=== PATIENT | male | born 1975 | race Two or more races ===

== ENCOUNTER 2019-09-14 19:57 | Inpatient (IN) | payer MEDICAID ==
[~2019-09-14] VITALS: Ht 182.9 cm; Wt 83.6 kg
--- NOTE | 2019-09-14 20:12 | NUR ---
ED Nurse Note: patient walked in to ED c/o high blood sugar, patient states he needs insulin and is visiting from [place] and has been unable to take his medications since he did not take it with him. Patient states he is also unable to check his blood sugar. Patient aao x 4 and ambulatory. No acute distress noted during assessment. Urine collected.
[2019-09-14 20:13] VITALS: BP_SYST 139; BP_SYST 148; BP_DIAS 78; BP_DIAS 89
[2019-09-14 20:24] LABS: APPEARANCE,URINE CLEAR; BILIRUBIN, URINE NEGATIVE (NEGATIVE); COLOR,URINE PALE YELLOW; GLUCOSE, URINE (UA) 4+ (NEGATIVE); KETONES,URINE 4+ (NEGATIVE); LEUKOCYTE ESTERASE ,URINE NEGATIVE (NEGATIVE); NITRITE,URINE NEGATIVE (NEGATIVE); PH,URINE 5 (4.5-8.0); PROTEIN,URINE 2+ (NEGATIVE); UROBILINOGEN,URINE NORMAL MG/DL (0.0-1.0)
[2019-09-14 20:25] LABS: BASOPHILS % (AUTO) 0.7 % (0.0-2.0); EOSINOPHILS % (AUTO) 0.1 % (0.0-3.0); HEMATOCRIT 53.2 % (42.0-52.0); LYMPHOCYTES % (AUTO) 10.5 % (20.0-45.0); MEAN CORPUSCULAR VOLUME 92 FL (80-99); MONOCYTES % (AUTO) 3.8 % (1.0-10.0); NEUTROPHILS % (AUTO) 84.9 % (45.0-75.0); PLATELET COUNT 243 K/UL (150-450); RED BLOOD COUNT 5.78 M/UL (4.70-6.10); RED CELL DISTRIBUTION WIDTH 11.7 % (11.6-14.8); WHITE BLOOD COUNT 11.3 K/UL (4.8-10.8)
[2019-09-14 20:39] LABS: ALANINE AMINOTRANSFERASE 78 U/L (12-78); ALBUMIN 5.1 G/DL (3.4-5.0); ALBUMIN/GLOBULIN RATIO 1.1 (1.0-2.7); ALKALINE PHOSPHATASE 126 U/L (46-116); ANION GAP 21 mmol/L (5-15); ASPARTATE AMINO TRANSFERASE 28 U/L (15-37); BILIRUBIN,TOTAL 0.7 MG/DL (0.2-1.0); BLOOD UREA NITROGEN 20 mg/dL (7-18); CALCIUM 9.7 MG/DL (8.5-10.1); CARBON DIOXIDE 15 MMOL/L (21-32); CHLORIDE 92 MMOL/L (98-107); CREATININE 1.5 MG/DL (0.55-1.30); POTASSIUM 5.2 MMOL/L (3.5-5.1); SODIUM 128 MMOL/L (136-145)
[2019-09-14 20:47] LABS: HEMOGLOBIN 18.3 G/DL (14.2-18.0)
--- NOTE | 2019-09-14 21:04 | NUR ---
ED Nurse Note: RT at bedside
[2019-09-14] MEDS ORDERED: Insulin Reg 100 units Premix 100 ML IV SCH ×2 (21:15→21:30)
--- NOTE | 2019-09-14 21:15 | Emergency Room Report ---
History of Present Illness General Chief Complaint: Vomiting Present Illness HPI Disclaimer: Please note that this report is being documented using [employer] technology. This can lead to erroneous entry secondary to incorrect interpretation by the dictating instrument. HPI: 44-year-old male history of diabetes presents for high blood sugar. Patient apparently was recently incarcerated and released. Came down to our area from [place] and [place] medications [place]. He has been out of his medications he has not had his medications for the past 4 days. During this time he is had some nausea and excessive thirst. He denies a history of DKA. Currently takes Lantus and Humulin in addition to metformin. Denies any fever cough or shortness of breath Denies any pain at this time. Allergies: Coded Allergies: No Known Allergies (Unverified , 09/14/19) COVID-19 Screening Contact w/high risk pt: No Experienced COVID-19 symptoms?: No COVID-19 Testing performed WEIGHT LOSS PHYSICIAN: No Patient History Reviewed Nursing Documentation: PMH: Agreed; PSxH: Agreed Nursing Documentation-PMH Hx Diabetes: Yes Review of Systems All Other Systems: negative except mentioned in HPI Physical Exam Vital Signs Date Time Temp Pulse Resp B/P (MAP) Pulse Ox O2 Delivery O2 Flow Rate FiO2 09/14/19 20:01 98.8 96 18 154/90 (111) 97 Room Air Sp02 EP Interpretation: reviewed, normal General Appearance: well appearing, no apparent distress Head: normocephalic, atraumatic Eyes: bilateral eye PERRL, bilateral eye EOMI ENT: hearing grossly normal, moist mucus membranes Neck: full range of motion, supple Respiratory: lungs clear, normal breath sounds, no rhonchi, no respiratory distress, no retraction, no wheezing Cardiovascular #1: normal peripheral pulses, regular rate, rhythm, no murmur Gastrointestinal: non tender, soft, non-distended, no guarding Neurologic: alert, oriented x3, no focal defects Skin: normal color, warm/dry Procedures Critical Care Time Critical Care Time Critical care is made on the patient due to presentation with hyperglycemia requiring my acute intervention. Critical care time is approximately 38 minutes and excludes procedures. Medical Decision Making Diagnostic Impression: Primary Impression: Diabetic ketoacidosis ER Course Differential included but not limited to diabetic ketoacidosis, dehydration, medication noncompliance name a few. Patient was in no acute distress on exam however blood glucose around 600. Anion gap 21. Carbonate decreased to 15. I suspect his DKA is secondary to medication noncompliance. IV fluids given. Patient started on insulin drip and will require admission to the ICU. Laboratory Tests Test 09/14/19 20:10 09/14/19 21:08 09/14/19 22:18 White Blood Count 11.3 K/UL (4.8-10.8) H Red Blood Count 5.78 M/UL (4.70-6.10) Hemoglobin 18.3 G/DL (14.2-18.0) *H Hematocrit 53.2 % (42.0-52.0) H Mean Corpuscular Volume 92 FL (80-99) Mean Corpuscular Hemoglobin 31.6 PG (27.0-31.0) H Mean Corpuscular Hemoglobin Concent 34.3 G/DL (32.0-36.0) Red Cell Distribution Width 11.7 % (11.6-14.8) Platelet Count 243 K/UL (150-450) Mean Platelet Volume 8.0 FL (6.5-10.1) Neutrophils (%) (Auto) 84.9 % (45.0-75.0) H Lymphocytes (%) (Auto) 10.5 % (20.0-45.0) L Monocytes (%) (Auto) 3.8 % (1.0-10.0) Eosinophils (%) (Auto) 0.1 % (0.0-3.0) Basophils (%) (Auto) 0.7 % (0.0-2.0) Urine Color Pale yellow Urine Appearance Clear Urine pH 5 (4.5-8.0) Urine Specific [place] 1.020 (1.005-1.035) Urine Protein 2+ (NEGATIVE) H Urine Glucose (UA) 4+ (NEGATIVE) H Urine Ketones 4+ (NEGATIVE) H Urine Blood 4+ (NEGATIVE) H Urine Nitrite Negative (NEGATIVE) Urine Bilirubin Negative (NEGATIVE) Urine Urobilinogen Normal MG/DL (0.0-1.0) Urine Leukocyte Esterase Negative (NEGATIVE) Urine RBC 0-2 /HPF (0 - 0) H Urine WBC 0 /HPF (0 - 0) Urine Squamous Epithelial Cells None /LPF (NONE/OCC) Urine Bacteria None /HPF (NONE) Sodium Level 128 MMOL/L (136-145) L Potassium Level 5.2 MMOL/L (3.5-5.1) H Chloride Level 92 MMOL/L (98-107) L Carbon Dioxide Level 15 MMOL/L (21-32) L Anion Gap 21 mmol/L (5-15) H Blood Urea Nitrogen 20 mg/dL (7-18) H Creatinine 1.5 MG/DL (0.55-1.30) H Estimated Glomerular Filtration Rate 51.3 mL/min (>60) Glucose Level 578 MG/DL (74-106) *H Calcium Level 9.7 MG/DL (8.5-10.1) Magnesium Level 2.0 MG/DL (1.8-2.4) Total Bilirubin 0.7 MG/DL (0.2-1.0) Aspartate Amino Transferase (AST) 28 U/L (15-37) Alanine Aminotransferase (ALT) 78 U/L (12-78) Alkaline Phosphatase 126 U/L (46-116) H Total Protein 9.6 G/DL (6.4-8.2) H Albumin 5.1 G/DL (3.4-5.0) H Globulin 4.5 g/dL Albumin/Globulin Ratio 1.1 (1.0-2.7) Urine Opiates Screen Pending Urine Barbiturates Screen Pending Phencyclidine (PCP) Screen Pending Urine Amphetamines Screen Pending Urine Benzodiazepines Screen Pending Urine Cocaine Screen Pending Urine Marijuana (THC) Screen Pending Acetone Level Positive-small (NEGATIVE) Arterial Blood pH 7.130 (7.350-7.450) Arterial Blood Partial Pressure CO2 28.7 mmHg (35.0-45.0) L Arterial Blood Partial Pressure O2 101.6 mmHg (75.0-100.0) H Arterial Blood HCO3 9.3 mmol/L (22.0-26.0) *L Arterial Blood Oxygen Saturation 96.9 % (95-100) Arterial Blood Base Excess -18.4 (-2-2) *L Matti Test Positive POC Whole Blood Glucose 383 MG/DL (74-106) H Rhythm Strip Diag. Results EP Interpretation: yes Rate: 97 Rhythm: NSR, no PVC's, no ectopy Last Vital Signs Date Time Temp Pulse Resp B/P (MAP) Pulse Ox O2 Delivery O2 Flow Rate FiO2 09/14/19 20:13 98.8 99 24 139/78 98 Room Air Disposition: ADMITTED INPATIENT Condition: Serious Referrals: NOT CHOSEN IPA/,REFERRING (PCP) Erik Petty M.D. Sep 14, 2019 21:15
[2019-09-14] MEDS ORDERED: METFORMIN HCL500 M1 ORAL (21:30)
[2019-09-14] MEDS ORDERED: SYMLIN600 MCG/1 SUBQ (21:31)
[2019-09-14] MEDS ORDERED: LANTUS SOL100 UNIT/1 SUBQ (21:31)
--- NOTE | 2019-09-14 22:16 | NUR ---
ED Nurse Note: Accucheck 383 mg/dL, informed ERMD, per Dr. Petty continue insulin drip at 9mL/hr.
--- NOTE | 2019-09-14 22:35 | NUR ---
ED Nurse Note: Belongings list completed, MRSA, VRE, CRE swabs collected and sent to lab.
--- NOTE | 2019-09-14 22:35 | NUR ---
ED Nurse Note: Per Dr. Petty, repeat BMP blood draw at 2335.
--- NOTE | 2019-09-14 23:26 | NUR ---
ED Nurse Note: Repeat BMP drawn and sent to lab.
--- NOTE | 2019-09-14 23:56 | NUR ---
ED Nurse Note: Spoke to laborer tree tapping, informed of repeat BMP to run.
--- NOTE | 2019-09-15 | NUR ---
ED Nurse Note: Per ERMD, change insulin drip rate to 7ml/hr. Insulin drip rate changed to reflect verbal order.
[2019-09-15 00:18] LABS: ANION GAP 17 mmol/L (5-15); BLOOD UREA NITROGEN 17 mg/dL (7-18); CALCIUM 7.9 MG/DL (8.5-10.1); CARBON DIOXIDE 16 MMOL/L (21-32); CHLORIDE 103 MMOL/L (98-107); CREATININE 1.1 MG/DL (0.55-1.30); SODIUM 135 MMOL/L (136-145)
[2019-09-15 00:43] VITALS: BP 124/78
--- NOTE | 2019-09-15 01:58 | NUR ---
ED Nurse Note: Per ERMD, maintain insulin drip at 7ml/hr and redraw BMP at 0230.
--- NOTE | 2019-09-15 02:25 | NUR ---
ED Nurse Note: BMP redraw sent to lab
[2019-09-15 03:02] LABS: BLOOD UREA NITROGEN 17 mg/dL (7-18); CARBON DIOXIDE 21 MMOL/L (21-32); CHLORIDE 104 MMOL/L (98-107); POTASSIUM 3.7 MMOL/L (3.5-5.1); SODIUM 135 MMOL/L (136-145)
[2019-09-15 03:03] LABS: CALCIUM 8.3 MG/DL (8.5-10.1)
--- NOTE | 2019-09-15 04:28 | NUR ---
ED Nurse Note: Report given to TABATHA Burger.
--- NOTE | 2019-09-15 04:30 | NUR ---
NURSE NOTES: ADMITTED 44 YEARS OLD MALE TO ROOM 414 BED 1 VIA GURNEY WITH ADMITTING DIAGNOSIS DKA, UNDER THE CARE OF DR. LEYVA. PATIENT AWAKE, ALERT/ORIENTED X4, VERBALLY RESPONSIVE, DENIES PAIN. NO SIGNS AND SYMPTOMS OF ACUTE CARDIO RESPIRATORY DISTRESS/SHORTNESS OF BREATH, DENIES CHEST PAIN, NO PERIPHERAL EDEMA NOTED. IV INTACT TO RIGHT AC/GAUGE 20, LEFT AC/GAUGE 18, IV FLUIDS STARTED AT 250ML/HOUR X 6 HOURS THEN 125ML/HOUR. ABDOMEN SOFT/NON DISTENDED, NO N/V SINCE EMERGENCY ROOM, CONTINENT OF B/B, BATHROOM PRIVILEGES. ORIENTATED PATIENT TO ROOM/ENVIRONMENT, DISCUSSED PLAN OF CARE/MD ORDERS, VERBALIZED UNDERSTANDING. SIDE RAILS UP X2, BED IN LOWEST POSITION FOR SAFETY, ENCOURAGED PATIENT TO UTILIZE CALL LIGHT FOR ASSISTANCE, VERBALIZED UNDERSTANDING. NAD.
--- NOTE | 2019-09-15 04:35 | NUR ---
TRANSFER TO FLOOR: Patient transferred to med surg as ordered, per ERMD. Report given to TABATHA Burger. Patient transported via gurney in stable condition accompanied by 1 RN and restoration technician.
[2019-09-15] MEDS ORDERED: SIMVASTATIN5 MG ORAL (05:09)
[2019-09-15] MEDS ORDERED: LISINOPRIL10 MG ORAL (05:09)
[2019-09-15] MEDS ORDERED: Levemir Flexpen SUBQ SCH ×2 (05:30→21:00)
[2019-09-15 05:32] VITALS: BP 126/73
--- NOTE | 2019-09-15 06:00 | NUR ---
NURSE NOTES: BLOOD GLUCOSE LEVEL 236MG/DL, ASYMPTOMATIC, ADM. 10 UNITS LEVEMIR ORDERED TOLERATED WELL, NO ADVERSE INSULIN REACTION NOTED AFTER 15 MINUTES.
[2019-09-15] MEDS ORDERED: NovoLOG Insulin Flexpen SUBQ SCH (06:30)
[2019-09-15] MEDS ORDERED: Insulin NPH SUBQ SCH (06:30)
[2019-09-15 06:41] LABS: BASOPHILS % (AUTO) 1.2 % (0.0-2.0); EOSINOPHILS % (AUTO) 0.5 % (0.0-3.0); HEMATOCRIT 41.2 % (42.0-52.0); HEMOGLOBIN 14.8 G/DL (14.2-18.0); LYMPHOCYTES % (AUTO) 23.5 % (20.0-45.0); MEAN CORPUSCULAR VOLUME 89 FL (80-99); MONOCYTES % (AUTO) 9.7 % (1.0-10.0); NEUTROPHILS % (AUTO) 65.1 % (45.0-75.0); PLATELET COUNT 170 K/UL (150-450); RED BLOOD COUNT 4.61 M/UL (4.70-6.10); RED CELL DISTRIBUTION WIDTH 11.3 % (11.6-14.8); WHITE BLOOD COUNT 7.3 K/UL (4.8-10.8)
[2019-09-15 06:56] LABS: ANION GAP 12 mmol/L (5-15); BLOOD UREA NITROGEN 17 mg/dL (7-18); CALCIUM 8.5 MG/DL (8.5-10.1); CARBON DIOXIDE 19 MMOL/L (21-32); CHLORIDE 104 MMOL/L (98-107); PHOSPHORUS 2.2 MG/DL (2.5-4.9); POTASSIUM 3.9 MMOL/L (3.5-5.1); SODIUM 135 MMOL/L (136-145)
--- NOTE | 2019-09-15 07:25 | NUR ---
NURSE NOTES: RECEIVED PATIENT A/A/OX4IN BED.CALM AND COMFORTABLE. NO ACUTE RESP DITRESS NOTED. NO C/O PAIN/DISCOMFORT NOTED. PIV PATENT AND INTACT AND RECEIVES IVF THAT INFUSES WELL. AMBULATES WITH A STEADY GAIT. KEEP BED IN THE LOWEST POSITION. SIDERAILS ARE UPX2. BED BRAKES AND LOCK ENGAGED. CALL LIGHT IS WITHIN EASY REACH. WILL CONT TO MONITOR.
--- NOTE | 2019-09-15 07:30 | NUR ---
NURSE HAND-OFF: Important Events on Shift:[LATEST BSL 241MG/DL, ASYMPTOMATIC] Patient Status: [STABLE] Diet: [CCHO MEDIUM] Pending Orders: [LABS] Pending Results/Labs:[NOT AVAILABLE] Pending MD notification:[N/A] Latest Vital Signs: Temperature 98.1, Pulse 81 , B/P 128 /68 126/73, Respiratory Rate 18 , O2 SAT 99, Room Air, O2 Flow Rate . Vital Sign Comment: [STABLE] Latest Gill Fall Score: 45 Fall Risk: High Risk Safety Measures: Call light Within Reach, Bed Alarm Zone 1, Side Rails Side Rails x2, Bed position Low and Locked. Fall Precautions: Yellow Socks Yellow Gown Door Sign Patient Fall Education Report given to [ARIE GARCIA].
[2019-09-15] MEDS: NovoLOG Insulin Flexpen SUBQ SCH ×2 (07:31→11:41)
[2019-09-15 07:51] VITALS: BP 130/77
[2019-09-15] MEDS ORDERED: Heparin 5000 units/ml inj SUBQ SCH (09:00)
[2019-09-15] MEDS ORDERED: Lisinopril 10mg tab ORAL SCH (09:00)
--- NOTE | 2019-09-15 09:17 | NUR ---
NURSE NOTES: DR GALVAN MADE AWARE OF THE MG 1.7 TODAY'S LAB. ORDER ENTERED BY DR GALVAN. WILL CONT TO MONITOR.
--- NOTE | 2019-09-15 09:20 | History & Physical ---
History and Physical History & Physicial History and Physical HPI Patient is a 44-year-old male history of diabetes presents for high blood sugar , had run out of his medications for the past 4 days. Had some nausea and excessive thirst. He denies a history of DKA. Previously was on Lantus 25 daily, Humulin in addition to metformin. Denies any fever cough or shortness of breath Denies any pain at this time. Allergies: No Known Allergies Past Medical History: Diabetes FH: [place] SH: Recent incarceration All Other Systems: negative except mentioned in HPI Physical Exam Vital Signs Noted Date Time Temp Pulse Resp B/P (MAP) Pulse Ox O2 Delivery O2 Flow Rate FiO2 09/14/19 20:01 98.8 96 18 154/90 (111) 97 Room Air General Appearance: well appearing, no apparent distress Head: normocephalic, atraumatic Eyes: bilateral eye PERRL, bilateral eye EOMI ENT: hearing grossly normal, moist mucus membranes Neck: full range of motion, supple Respiratory: lungs clear, normal breath sounds, no rhonchi, no respiratory distress, no retraction, no wheezing Cardiovascular: HS1, HS2 normal, normal peripheral pulses, regular rate, rhythm , no murmur Gastrointestinal: non tender, soft, non-distended, no guarding Neurologic: alert, oriented x3, no focal defects Skin: normal color, warm/dry, no edema Impression: Diabetic ketoacidosis Plan Insulin gtt DC in ED Restart Lantus PTAmedications ISS PPX Laboratory Tests noted Test 09/14/19 20:10 09/14/19 21:08 09/14/19 22:18 White Blood Count 11.3 K/UL (4.8-10.8) H Red Blood Count 5.78 M/UL (4.70-6.10) Hemoglobin 18.3 G/DL (14.2-18.0) *H Hematocrit 53.2 % (42.0-52.0) H Mean Corpuscular Volume 92 FL (80-99) Mean Corpuscular Hemoglobin 31.6 PG (27.0-31.0) H Mean Corpuscular Hemoglobin Concent 34.3 G/DL (32.0-36.0) Red Cell Distribution Width 11.7 % (11.6-14.8) Platelet Count 243 K/UL (150-450) Mean Platelet Volume 8.0 FL (6.5-10.1) Neutrophils (%) (Auto) 84.9 % (45.0-75.0) H Lymphocytes (%) (Auto) 10.5 % (20.0-45.0) L Monocytes (%) (Auto) 3.8 % (1.0-10.0) Eosinophils (%) (Auto) 0.1 % (0.0-3.0) Basophils (%) (Auto) 0.7 % (0.0-2.0) Urine Color Pale yellow Urine Appearance Clear Urine pH 5 (4.5-8.0) Urine Specific [place] 1.020 (1.005-1.035) Urine Protein 2+ (NEGATIVE) H Urine Glucose (UA) 4+ (NEGATIVE) H Urine Ketones 4+ (NEGATIVE) H Urine Blood 4+ (NEGATIVE) H Urine Nitrite Negative (NEGATIVE) Urine Bilirubin Negative (NEGATIVE) Urine Urobilinogen Normal MG/DL (0.0-1.0) Urine Leukocyte Esterase Negative (NEGATIVE) Urine RBC 0-2 /HPF (0 - 0) H Urine WBC 0 /HPF (0 - 0) Urine Squamous Epithelial Cells None /LPF (NONE/OCC) Urine Bacteria None /HPF (NONE) Sodium Level 128 MMOL/L (136-145) L Potassium Level 5.2 MMOL/L (3.5-5.1) H Chloride Level 92 MMOL/L (98-107) L Carbon Dioxide Level 15 MMOL/L (21-32) L Anion Gap 21 mmol/L (5-15) H Blood Urea Nitrogen 20 mg/dL (7-18) H Creatinine 1.5 MG/DL (0.55-1.30) H Estimated Glomerular Filtration Rate 51.3 mL/min (>60) Glucose Level 578 MG/DL (74-106) *H Calcium Level 9.7 MG/DL (8.5-10.1) Magnesium Level 2.0 MG/DL (1.8-2.4) Total Bilirubin 0.7 MG/DL (0.2-1.0) Aspartate Amino Transferase (AST) 28 U/L (15-37) Alanine Aminotransferase (ALT) 78 U/L (12-78) Alkaline Phosphatase 126 U/L (46-116) H Total Protein 9.6 G/DL (6.4-8.2) H Albumin 5.1 G/DL (3.4-5.0) H Globulin 4.5 g/dL Albumin/Globulin Ratio 1.1 (1.0-2.7) Urine Opiates Screen Pending Urine Barbiturates Screen Pending Phencyclidine (PCP) Screen Pending Urine Amphetamines Screen Pending Urine Benzodiazepines Screen Pending Urine Cocaine Screen Pending Urine Marijuana (THC) Screen Pending Acetone Level Positive-small (NEGATIVE) Arterial Blood pH 7.130 (7.350-7.450) Arterial Blood Partial Pressure CO2 28.7 mmHg (35.0-45.0) L Arterial Blood Partial Pressure O2 101.6 mmHg (75.0-100.0) H Arterial Blood HCO3 9.3 mmol/L (22.0-26.0) *L Arterial Blood Oxygen Saturation 96.9 % (95-100) Arterial Blood Base Excess -18.4 (-2-2) *L Matti Test Positive POC Whole Blood Glucose 383 MG/DL (74-106) H EKG: Rate: 97 Rhythm: NSR, no PVC's, no ectopy Marv Bobo MD Sep 15, 2019 09:20
--- NOTE | 2019-09-15 10:36 | NUR ---
CHARGE NURSE NOTE: Pt states that he wants to be discharged today (he needs to go to [place] with his family). Pt was instructed on diabetes management, activity, diet. Pt is non-complaint, hemA1c 10.1. Spoke to . He will see patient later and possibly discharge him.
--- NOTE | 2019-09-15 10:58 | NUR ---
RD ASSESSMENT & RECOMMENDATIONS SEE CARE ACTIVITY FOR COMPLETE ASSESSMENT DAILY ESTIMATED NEEDS: Needs based on DM 77.5kg abw 25-30 kcals/kg 5316-8641 total kcals 1-1.5 g protein/kg 78-116 g total protein 25-30 mL/kg 8661-4110 total fluid mLs NUTRITION DIAGNOSIS: Altered nutrition related lab values r/t diabetes as evidenced by A1C 10.1, ugly 4+, acetone (+), BG 578 on adm. CURRENT DIET: CCHO MED PO DIET RECOMMENDATIONS: Rec CCHO LOW DIET (3carbs/ meal) w/ DOUBLE PROTEIN PORTIONS ADDITIONAL RECOMMENDATIONS: 1) Obtain a standing weight 2) B-complex qdaily 3) Diet edu as able 4) 1-carb snack in b/w meals
[2019-09-15 11:54] VITALS: BP 128/68
[2019-09-15] MEDS ORDERED: LIPITOR10 MG ORAL (12:23)
[2019-09-15] MEDS ORDERED: LEVEMIR100 UNIT/1 SUBQ (12:24)
[2019-09-15] MEDS ORDERED: LEVEMIR FL100 UNIT/1 SUBQ ×2 (12:25→12:27)
[2019-09-15] MEDS ORDERED: NOVOLOG100 UNITS1 SUBQ (12:28)
--- NOTE | 2019-09-15 13:55 | NUR ---
NURSE NOTES: DISCHARGE WITH INSTRUCTIONS AND RX. REMOVED IV HEPLOCK. NO ACUTE CARDIO-RESP DISTRESS NOTED. PERSONAL BELONGINGS NOTED. VERIFIED HOME ADDRESS. VERBALIZED UNDERSTANDING. IN STABLE CONDITION.
[2019-09-16] MEDS ORDERED: Levemir Flexpen SUBQ SCH (06:30)
--- NOTE | 2019-09-16 11:54 | Discharge Summary ---
Discharge Summary Discharge Summary _ DATE OF ADMISSION: 09/14/2019 DATE OF DISCHARGE: 09/15/2019 DISCHARGED BY: Dr. Dee REASON FOR ADMISSION: 44 years old male with past medical history of diabetes mellitus type 2, hepatitis C, hypercholesterolemia, presented due to high blood sugar. Patient apparently was recently incarcerated and then released. Patient came to our area from [place]. Patient was out of his medications and did not take any anti-glycemic for the past 4 days. During this time he experienced nausea and excessive thirst. He denied prior history of DKA. At home patient takes Lantus and Levemir in addition to metformin. No fever. No cough or shortness of breath. Upon evaluation blood pressure was elevated 154/90 , pulse oximetry was stable on room air, and patient was afebrile. Laboratory work-up revealed mild leukocytosis WBC 11.3 ,stable hemoglobin , hematocrit ,and platelet count. Urinalysis revealed +2 protein, +4 glucose, + 4 ketones. No evidence of urinary tract infection. Sodium 128, potassium 5.2 . Anion gap 21. BUN 20, creatinine 1.5. Glucose 578. Urine toxicology screen was negative. ABG revealed evidence of metabolic acidosis with pH 7.13 and bicarbonate 9.3. In emergency department patient received hydration, started on insulin drip , received antiemetic and Pepcid, and admitted for DKA. HOSPITAL COURSE: Patient started on insulin n drip and aggressive hydration in emergency department. Blood sugar improved. Insulin drip was discontinued, while patient was still in emergency room . Patient started on long-acting insulin and short acting insulin. Blood sugar stabilized. Hemoglobin A1c 10.1. Diabetic diet and diabetic teaching provided. Blood sugar was further managed with long-acting Levemir , pre-meal short acting insulin and sliding scale of insulin as needed . GI prophylaxis continued. Blood pressure was managed with ALY inhibitor. Patient restarted on statin as at home. DVT prophylaxis provided. Renal parameters electrolytes were closely monitored. With IV hydration , BUN from 20 down to 17 and creatinine from 1.5 down to 1.0. Electrolytes stabilized : sodium from 128 up to 135 , potassium from 5.2 down to 3.9 , anion gap closed , magnesium was replaced Patient clinically stabilized and was ready for discharge home. Due to rapid and unexpected improvement in patient condition, patient was discharged in 1 day. FINAL DIAGNOSES: Diabetic ketoacidosis DISCHARGE MEDICATIONS: See Medication Reconciliation list. DISCHARGE INSTRUCTIONS: Patient was discharged home. Outpatient follow-up with a primary care provider in 1 week. Patient was encouraged compliance with medication regimen and diet I have been assigned to dictate discharge summary for this account. I was not involved in the patient's management. Eun Sanchez NP Sep 16, 2019 11:54
--- NOTE | 2019-09-16 15:03 | NUR ---
INSURANCE: STEFFEN GATICA REF: [id number] PH: [phone] FX: [phone]
== END 2019-09-15 13:50 | disposition home or self-care (01) | DRG 420 ==
LOC: EMR 20:17 → 4E 21:42 → EDBEDREQ 09-15 03:47 → EDBEDREQSVC 09-15 03:47 → EDBEDREQ 09-15 03:48
DX: E11.10 Type 2 diabetes mellitus with ketoacidosis without coma (principal); Z91.14 Patient's other noncompliance with medication regimen; Z79.4 Long term (current) use of insulin
CPT/HCPCS: 36415; 36600; 80048; 80053; 80307; 81003; 82009; 82803; 82962; 83036; 83735; 84100; 85025; 87081; 96360; 99291; J1815; J2405; J7030; S5561; U0002